=== PATIENT | male | born 1965 | race Two or more races ===

== ENCOUNTER 2020-08-14 16:44 | Emergency (ER) | payer OTHER ==
[~2020-08-14] VITALS: Ht 167.6 cm; Wt 79.4 kg
[2020-08-14 16:52] VITALS: BP 150/96
[2020-08-14] MEDS ORDERED: IBUPROFEN 600 MG TAB PO ONE (17:45)
[2020-08-14] MEDS ORDERED: TETANUS-DIPTH-ACEL PERTUSSIS 0.5ML SYR Tdap IM ONE (17:45)
== END 2020-08-14 18:14 | disposition home or self-care (01) ==
LOC: ER 16:44
DX: S61.213A Laceration without foreign body of left middle finger without damage to nail, initial encounter (principal); W22.8XXA Striking against or struck by other objects, initial encounter; Y93.89 Activity, other specified; Y92.89 Other specified places as the place of occurrence of the external cause; Y99.8 Other external cause status
CPT/HCPCS: 12002; 73130; 90471; 90715